=== PATIENT | female | born 1945 | race Hispanic/Latino ===

== ENCOUNTER → 2024-08-25 | Outpatient (CLI) | payer OTHER ==
[~2024-08-25] MED LIST: ALBU18HF7 IH; ALPR0.5T8 PO; ASPI-1012 PO; ATOR10TA69 PO; CHOL500050 PO; FLUT15.87 NS; FURO20TA4 PO; HYDR-4457 PO; HYDR12.530 PO; LOSA100T59 PO; METO-391 PO; POTA-364 PO
[2024-08-25] MEDS: REGADENOSON 0.4 MG/5 ML PF SYG IVP ONE (11:36)
--- NOTE | 2024-08-25 18:15 | HMCSR ---
APPROVED REPORT Height: 5 ft 6in Weight: 215 lbs TEST INDICATIONS R06.09 OTHER FORMS OF DYSPNEA The imaging protocol used to acquire images was Rest Tc-99m/stress Tc-99m 1 day Consent: The procedure was explained and understood by the patient. Informerd consent was witnessed Kadi Miranda RN First, low dose rest was performed then high dose stress. RESTING DATA: The resting ekg shows: NSR Rest SPECT myocardial perfusion imaging was performed in supine position 60 minutes following the int ravenous injection of 10.5 mCi of Tc-99 Sestamibi. Time of rest injection: 08:15: Date: 08/25/2024 Time of rest imagin:15: Date: 08/25/2024 PHARMACOLOGIC STRESS: Pharmacologic stress test was performed by injecting regadenoson 0.4 mg IV push followed by the intra venous injection of 30.6 mCi of Tc-99 Sestamibi. Time of stress injection: 09:40: Date: 08/25/2024 Time of stress imagin:26: Date: 08/25/2024 Heart Rate at time of stress injection: 61 bpm. Gated Stress SPECT was performed 76 minutes after stress injection. The images were gated to evaluate regional wall motion and calculate left ventricular ejection fracti on. STRESS DETAILS Reason for Termination: Infusion complete Stress Symptoms: Headache, Cough, Fatigue Max HR Achieved: 94 bpm % of APMHR Achieved: 66 Max Blood Pressure: 165/74 mmHg Stress ECG: NSR Study quality was good. Lung uptake was Normal. Artifact: No artifact IMPRESSION Normal pharmacologic nuclear stress test. Conclusion Normal perfusion. LVEF >70%.
== END | disposition home or self-care (01) ==
LOC: SHCH 07:45
PROVIDERS: ATTEND Internal Medicine Cardiovascular Disease
DX: R06.09 Other forms of dyspnea (principal); R79.89 Other specified abnormal findings of blood chemistry; R53.83 Other fatigue; R51.9 Headache, unspecified; R05.9 Cough, unspecified
CPT/HCPCS: 78452; 93017; J2785; A9500 ×2